=== PATIENT | male | born 2005 ===

== ENCOUNTER 2025-02-19 14:18 | Emergency (ER) | payer OTHER, BC ==
[2025-02-19] MEDS: Bacitracin Oint 1 GM U/D Packet TOP ONE (16:01)
== END 2025-02-19 16:17 | disposition home or self-care (01) ==
LOC: MW.ED 14:18
DX: S62.631A Displaced fracture of distal phalanx of left index finger, initial encounter for closed fracture (principal); S61.311A Laceration without foreign body of left index finger with damage to nail, initial encounter; Z79.899 Other long term (current) drug therapy; W23.0XXA Caught, crushed, jammed, or pinched between moving objects, initial encounter
CPT/HCPCS: 12001; 73130; 99283; A9270; J2003; 99284